=== PATIENT | male | born 1955 | race Caucasian/White ===

== ENCOUNTER 2025-04-02 13:38 | Emergency (ER) | payer MEDICARE, SELFPAY ==
[2025-04-02] VITALS (7 sets, daily range): BP systolic 113–139; BP diastolic 62–78; PULSE 60–76; RESP 16–20; TEMP 36.2–37; O2SAT 97–98; BMI 27.5
--- NOTE | ~2025-04-02 | CT_ITS ---
CLINICAL HISTORY: Abnormal plain head CT, MRI is not doable today CT head with and without contrast Comparison: None available Findings: No acute hemorrhage. No extra-axial fluid collection. Prominence of the ventricles and extra-axial spaces due to atrophy of the brain parenchyma. No hydrocephalus, mass-effect or herniation. Britton-white differentiation is maintained. There is patchy hypoattenuation of the periventricular and deep white matter, which is most likely the sequela of moderate chronic small vessel ischemic disease. No abnormal enhancement. No acute orbital pathology. No acute soft tissue abnormality. No fracture. The visualized paranasal sinuses are predominantly clear. The mastoid air cells are clear. Impression: No acute findings. An addendum can be provided of the prior study is submitted for review. This document has been electronically signed by: Aleah Villagomez MD on 04/02/2025 18:50:28
--- NOTE | ~2025-04-02 | CT_ITS ---
EXAMINATION: CT HEAD WITHOUT CONTRAST CLINICAL INFORMATION: Head trauma, loss of consciousness, anticoagulated COMPARISON: None available. TECHNIQUE: Contiguous axial imaging was performed from the skull base to vertex without intravenous administration of contrast. This CT examination was performed using dose optimization techniques as appropriate, variously including the following: *Automated exposure control *Adjustment of mA and/or kV according to patient size (this includes techniques or standardized protocols for targeted exams where dose is matched to indication/reason for exam; i.e. extremities or head) *Use of iterative reconstruction technique DLP: 726 mGY*cm FINDINGS: There is no acute ischemic change. Periventricular white matter hypodensities are present. There is no intracranial hemorrhage. There is mild effacement of sulci in the posterior right frontal lobe apex. No intracranial hemorrhage is apparent. Britton-white matter differentiation is visible. Basal cisterns and ventricles are within normal limits for age/cerebral volume. Orbits are symmetrical and unremarkable. Paranasal sinuses and mastoid air cells are pneumatized. There are no bony abnormalities. CT/CT Head for ICH IMPRESSION: There is asymmetry with sulcal effacement in the posterior right frontal-parietal vertex compared to the left. Occult lesion is not entirely ruled out. Consider MRI of the brain. Electronically signed by: Yovani Tavarez MD 04/02/2025 02:45 PM EDT
--- NOTE | ~2025-04-02 | XR_ITS ---
EXAMINATION: XR CHEST CLINICAL INFORMATION: syncope COMPARISON: None available. TECHNIQUE: Frontal view of the chest was obtained. FINDINGS: Pacemaker is positioned over the left upper chest with leads terminating in the right atrium and right ventricle. The heart size is within normal limits. Lungs are clear and well aerated. Prosthetic discs are present in the lower cervical spine. XR/XR chest 1V IMPRESSION: No acute disease Dual-lead Pacemaker. Electronically signed by: Yovani Tavarez MD 04/02/2025 03:36 PM EDT
--- NOTE | 2025-04-02 13:42 | ECG_ITS ---
Test Reason : weakness Blood Pressure : */* mmHG Vent. Rate : 72 BPM Atrial Rate : 72 BPM P-R Int : 190 ms QRS Dur : 86 ms QT Int : 402 ms P-R-T Axes : * 24 48 degrees QTcB Int : 440 ms Atrial-paced rhythm Abnormal ECG No previous ECGs available Referred By: Generic ED Physician Electronically Signed By: JULIANA PANDA
--- NOTE | 2025-04-02 13:59 | ED_ITS ---
HPI - General Adult General Chief complaint: Syncope Stated complaint: Weakness, passed out earlier Time Seen by Provider: 04/02/25 14:14 Source: patient and family ( spouse) Mode of arrival: ambulatory Limitations: no limitations History of Present Illness ED Provider: DR. Moffett HPI narrative: 69-year-old maleWith cardiac pacemaker on Eliquis, LDH came in with his family after he had a syncopal episode while he was at a restaurant patient felt lightheadedness tried to get out of the restaurant to get fresh air then he lost consciousness his witnessed him falling backward and becoming stiff without seizure activity the episode lasted for about 10-20 seconds as per the patient spontaneously regained his consciousness. patient admitted to drinking 1 beer and taking 15 mg THC gummie he brought from the dispensary. no headache, no blurry vision, no neck pain, no chest pain, no shortness of breath, no abdominal pain, no nausea, no vomiting. Related Data Allergies Allergy/AdvReac Type Severity Reaction Status Date / Time No Known Allergies Allergy Verified 04/02/25 14:00 Review of Systems 2 Review of Systems: All other systems are reviewed and are negative Constitutional: Reports as per HPI and Reports no additional constitutional complaints Eyes: Reports as per HPI and Reports no additional eye complaints Reports system reviewed and no additional complaints, except as documented Cardiovascular: Reports as per HPI and Reports no additional cardiovascular complaints Respiratory: Reports as per HPI and Reports no additional respiratory complaints Gastrointestinal: Reports as per HPI and Reports no additional gastrointestinal complaints Genitourinary: Reports no additional female genitourinary complaints Musculoskeletal: Reports no additional musculoskeletal complaints Skin/Breast: Reports system reviewed and no additional complaints, except as docu Psychiatric: Reports no additional psychiatric complaints Endocrine: Reports no additional endocrine complaints Hematologic/Lymphatic: Reports no additional hematologic/lymphatic complaints Allergic/Immunologic: Reports no additional allergic/immunologic complaints Reports system reviewed and no additional complaints, except as documented and Reports Abnormal speech present [facility] Social History Social History Smoked in Last 30 Days: No Use of substances other than those prescribed or required for medical reasons: Yes Substance Use Type: Marijuana Substance Use Frequency: Occasionally Last Used Substance: Hours (ago) Any prior treatment program specific to substance use: No Advance Directives: Yes Advance Directives Information Provided: No Advance Directives on File: No Do you have a plan to hurt others: No Plan Physical Exam ED Vital Signs: Vital Signs - 24 hr 04/02/25 13:56 04/02/25 14:30 04/02/25 14:31 Temperature 97.1 F Pulse Rate 72 71 73 Respiratory Rate 16 Blood Pressure 113/70 139/78 129/70 Pulse Oximetry 98 Oxygen Delivery Method Room Air 04/02/25 14:31 04/02/25 15:14 04/02/25 17:31 Temperature Pulse Rate 66 60 Respiratory Rate 16 Blood Pressure 138/66 115/62 Pulse Oximetry 98 97 Oxygen Delivery Method Room Air Room Air 04/02/25 19:35 Temperature 98.6 F Pulse Rate 63 Respiratory Rate 20 Blood Pressure 123/67 Pulse Oximetry 97 Oxygen Delivery Method Room Air BMI result Body Mass Index 27.5 Vital signs have been reviewed and appear to be correct. Blood pressure elevated. Heart rate normal. Respiratory rate normal. Temperature normal. Oxygen saturation normal. Orthostatic vital signs was noted appeared to be normal. Appearance: Alert. Oriented X3. No acute distress. Head: Normal external exam. Normocephalic. Atraumatic. No Torres signs noted. No raccoon eyes noted Eyes: PERRLA. EOMI. Conjunctiva and sclera normal. Eyelids normal. ENT: TM's Normal. Pharynx normal. Uvula midline. Moist mucous membranes. No trismus noted. No drooling noted. No muffled voice noted. Neck: Normal inspection. Neck supple. FROM. No adenopathy. Thyroid Normal. No meningeal signs. No neck mass noted. CVS: Normal heart rate and rhythm. Heart sound normal. No murmurs noted. Pulses normal throughout. Respiratory: No respiratory distress. Painless inspiration. Breath sounds normal. No wheezes/rales/rhonchi noted. Chest nontender. No accessory muscle usage noted or decreased air movement noted. Abdomen: Soft and nontender. Bowel sounds normal in all 4 quadrants. No distention noted. No organomegaly noted. No visible injury noted. Back: No CVA tenderness. Full range of motion noted. Skin: Skin warm and dry. Normal skin color. Normal skin turgor. No rashes/lesions/lacerations noted. Extremities: No lower extremity edema. Extremities exhibit normal range of motion. Extremities nontender. Neuro: Mental status: Normal attention, orientation, memory, and affect. Cranial nerves: Pupils are equal, round and reactive to light, EOMI, visual sanchez are fall, face is symmetric, facial sensations are normal. Motor examination normal muscle tone, strength to 4 extremities. DTR are +2, planter's are flexor. Sensory exam; normal coordination, no ataxia, gait stable. Cerebellar exam: [id number] and kulw-[id number]-qiud is normal. Extrapyramidal system: No tremors, no rigidity with normal facial expressions. Pronator drift not present NIH Stroke Scale Time: 15:19 Level of Consciousness: Alert Level of Consciousness Questions: Answers both questions correctly Level of Consciousness Commands: Performs both tasks correctly Best Gaze: Normal Visual: No visual loss Facial Palsy: Normal Motor Arm (Right): No drift Motor Arm (Left): No drift Motor Leg (Right): No drift Motor Leg (Left): No drift Limb Ataxia: Absent Sensory: Normal Best Language: No aphasia Dysarthia: Normal Extinction and Inattention: No abnormality Score: 0 Course Course Course Narrative: This is an RME: Additional HPI, ROS, PE not included below will be deferred to primary provider. RME assessment and note performed by: Anna Naylor PA-C This is a [id number]-male, with a hx of cardiac pacemaker on eliquis and HLD, who presents to the ER with complaints of weakness with +head strike with LOC. Reports that he took a THC gummy 15mg, then suddenly felt weak in the knees, stood up to get air outside and fell backwards, striking his posterior head. Loss consciousness for 30 seconds. Plan: Labs, CT head Reevaluation(s) Reevaluation #1: 69-year-old male came in after had syncopal episode at a restaurant. 1. Pacemaker and anticoagulation for unclear etiology. Patient will be monitored for the next 24 hours observation. 2. Questionable abnormal head CT recommending MRI, patient with pacemaker which should be compatible with MRI. 3. Case discussed with Dr. Beckford and patient to be admitted for syncope requesting to get MRI from the ED MRI was ordered. Time: 15:30 Reevaluation #2: 69-year-old male require MRI for abnormal head CT MRI is not possible to get done at this time of the day because will need to contact the pacemaker rep to reprogram the pacemaker after the MRI which is not available today will consider CT with IV contrast. Medical Decision Making Medical Decision Making [facility] Narrative: Patient is status post pacemaker for syncope episode about 2 years ago with life of 11 years comes here for syncope episode etiology not very clear patient has had a good pulse no seizure activity noticed likely vasovagal Medtronic pacemaker was checked showed no event case discussed Dr. Matias agreed with the report of the Medtronic. Patient does not want to stay in the hospital for further management signed against medical advice patient advised to go to nearest hospital for further evaluation and management about the syncope episode Differential Diagnosis Differential Diagnoses: The differential diagnosis associated with the presentation includes ( Cardiac event, ACS, pneumonia, pneumothorax, pleural effusion, intracranial bleed, electrolyte derangement, severe anemia.) Admission/Observation Consideration of admission/observation: Escalation of care including admission/observation considered Consult Healthcare Provider Management of the patient was discussed with: Hospitalist ( Dr. Beckford) Lab Data [facility] Lab Attestation statement: I reviewed the patient's lab results. 04/02/25 14:17 04/02/25 14:17 Labs: Lab Results 04/02/25 Range/Units 14:17 WBC 6.7 (4.8-10.8) X10*3/uL RBC 4.54 L (4.60-5.80) X10*6/uL Hgb 14.4 (14.0-18.0) g/dl Hct 41.6 L (42.0-52.0) % MCV 91.6 (80.0-98.0) fL MCH 31.7 (27.0-33.0) pg MCHC 34.6 (31.0-36.0) g/dl RDW 13.2 (11.0-16.0) % Plt Count 142 L (160-400) X10*3/uL MPV 11.1 (9.4-12.4) fL Immature Gran % (Auto) 0.1 (0.0-0.4) % Neut % (Auto) 57.7 (45-73) % Lymph % (Auto) 30.6 (20-40) % [place] % (Auto) 10.2 (2-11) % Eos % (Auto) 1.0 (0-4) % Baso % (Auto) 0.4 (0-2) % Lymph # (Auto) 2.0 (1.2-4.9) X10*3/uL [place] # (Auto) 0.7 (0.1-1.2) X10*3/uL Eos # (Auto) 0.1 (0.0-0.4) X10*3/uL Baso # (Auto) 0.0 (0.0-0.2) X10*3/uL Abs Immat Gran (auto) 0.01 (0.00-0.03) X10*3/uL Absolute Neuts (auto) 3.8 (2.0-8.3) x10*3/uL Absolute Nucleated RBC 0.000 (0.0-0.012) X10*3/uL Nucleated RBC % (auto) 0.0 (0.0-0.2) /100WBC Sodium 136 (135-145) mmol/L Potassium 4.4 (3.3-5.1) mmol/L Chloride 105 (96-108) mmol/L Carbon Dioxide 21 L (22-29) mmol/L Anion Gap 14 (12-20) BUN 13 (9-16) mg/dL Creatinine 0.97 (0.5-1.4) mg/dL Estim Creat Clear Calc 81.1 Estimated GFR > 60 Random Glucose 209 H (60-115) mg/dL Calcium 8.8 (8.4-10.2) mg/dL Magnesium 2.0 (1.6-2.6) mg/dL Total Bilirubin 1.0 (0.0-1.0) mg/dL Direct Bilirubin 0.4 (0.0-0.5) mg/dL AST 31 (5-37) U/L ALT 21 (0-40) U/L Alkaline Phosphatase 38 L (39-117) U/L Troponin I High Sens < 2.7 (<3.5-35.0) ng/L Total Protein 6.6 (6.5-8.0) g/dL Albumin 3.9 (3.5-5.0) g/dL Independent Interpretation I performed an independent interpretation of an: EKG ( Atrial paced at [address] Scan ( head:There is asymmetry with sulcal effacement in the posterior right frontal-parietal vertex compared to the left. Occult lesion is not entirely ruled out. Consider MRI of the brain. ) Radiology Impression Discussion of test interpretation with radiology: I have reviewed the radiologist's reading. Discharge Plan Discharge Clinical Impression: Syncope Patient Disposition: Left Against Medical Advice Instructions: Syncope (ED) Additional Instructions: Cause of syncope is not very clear your pacemaker was checked which was working normally You need further evaluation but you have decided to go against medical advice please seek medical attention as soon as possible for further management Stand Alone Forms: Against Medical Advice Print Language: Vietnamese
[2025-04-02 14:23] LABS: MANUAL DIFF FLAG NO
[2025-04-02 14:25] LABS: Basophils Percent Auto 0.4 % (0-2); Eosinophils Absolute Auto 0.1 X10*3/uL (0.0-0.4); Hematocrit 41.6 % (42.0-52.0); Hemoglobin 14.4 g/dl (14.0-18.0); Imm Gran Abs Auto 0.01 X10*3/uL (0.00-0.03); Imm Gran Pct Auto 0.1 % (0.0-0.4); Lymphocytes Percent Auto 30.6 % (20-40); Mean Corpuscular HGB Conc 34.6 g/dl (31.0-36.0); Mean Corpuscular Hemoglobin 31.7 pg (27.0-33.0); Mean Corpuscular Volume 91.6 fL (80.0-98.0); Mean Platelet Volume 11.1 fL (9.4-12.4); Monocytes Absolute Auto 0.7 X10*3/uL (0.1-1.2); Monocytes Percent Auto 10.2 % (2-11); Neutrophils Absolute Auto 3.8 x10*3/uL (2.0-8.3); Neutrophils Percent Auto 57.7 % (45-73); Platelet Count 142 X10*3/uL (160-400); Red Blood Count 4.54 X10*6/uL (4.60-5.80); Red Cell Distribution Width 13.2 % (11.0-16.0); White Blood Count 6.7 X10*3/uL (4.8-10.8)
[2025-04-02 14:43] LABS: Alanine Aminotransferase 21 U/L (0-40); Albumin Level 3.9 g/dL (3.5-5.0); Alkaline Phosphatase 38 U/L (39-117); Anion Gap 14 (12-20); Aspartate Amino Transferase 31 U/L (5-37); Bilirubin Direct 0.4 mg/dL (0.0-0.5); Blood Urea Nitrogen 13 mg/dL (9-16); Calcium 8.8 mg/dL (8.4-10.2); Carbon Dioxide 21 mmol/L (22-29); Chloride 105 mmol/L (96-108); Creatinine Clr Calc Pharmacy 81.1; Estimated Glomerular Filt Rate > 60; Glucose Random 209 mg/dL (60-115); Potassium 4.4 mmol/L (3.3-5.1); Sodium 136 mmol/L (135-145); Total Protein 6.6 g/dL (6.5-8.0)
[2025-04-02 14:51] LABS: Troponin-I High Sensitivity < 2.7 ng/L (<3.5-35.0)
--- OUTSIDE RECORDS SUMMARY | 2025-04-02 17:46 | XMS_ITS ---
Author Name [facility] Organization Unknown Encounters Encounter Type Encounter Reason Primary Diagnosis Location Date Ambulatory Remote Device Sick sinus syndrome [facility] 01/27/2025 Ambulatory Office Visit Essential (prima ry) hypertension [facility] 11/10/2024 Ambulatory Office Visit Presence of card iac pacemaker [facility] 10/28/2024 Ambulatory Office Visit Essential (prima ry) hypertension [facility] 04/21/2024 Ambulatory Office Visit Paroxysmal atria l fibrillation [facility] 03/06/2024 Ambulatory Office Visit Encounter for ad just and mgmt oth prt cardiac pacemaker [facility] 11/08/2023 Ambulatory Office Visit Pain in unspecif ied elbow [facility] 11/02/2023 Ambulatory Encntr for gener al adult medical exam w/o abnormal findings [facility] 04/13/2023 Ambulatory Paroxysmal atria l fibrillation [facility] 02/27/2023 Ambulatory Encounter for immunization [facility] 08/24/2022 Ambulatory Sick sinus syndrome [facility] 08/09/2022 Care Team Organization Name Specialty Phone Email Start Date End Da darrian [place] [facility] 10/05/202303/27 [facility] 04/13/2023 0 04/13/2023 [facility] Panel 10/13/2022 [facility] 08/09/2022 08/24/2022
--- NOTE | 2025-04-02 19:54 | PM.EVENT ---
Event Note Date of Service: 04/02/25 Event Note: Went to evaluate patient. Patient does not want to be admitted. ED provider, Dr. Duggan is at bedside interrogating his pacemaker. Time Spent With Patient Time: Total time managing care of this patient today ____ minutes.
== END 2025-04-02 20:38 | disposition left against medical advice (07) ==
PROVIDERS: Physician Assistant Medical; Emergency Provider Emergency Medicine
DX: R55 Syncope and collapse (principal); R53.1 Weakness; R40.4 Transient alteration of awareness; F12.90 Cannabis use, unspecified, uncomplicated; R94.31 Abnormal electrocardiogram [ECG] [EKG]; Z79.01 Long term (current) use of anticoagulants; Z79.899 Other long term (current) drug therapy
CPT/HCPCS: 36415; 70450; 70460; 71045; 80048; 80076; 83735; 84484; 85025; 93005; 99285

== ENCOUNTER → 2025-04-02 13:42 | Outpatient (BNV) | payer MEDICARE, SELFPAY | PROVIDERS: Emergency Provider Emergency Medicine; Visit Provider Internal Medicine | DX: R94.31 Abnormal electrocardiogram [ECG] [EKG] (principal); Z95.0 Presence of cardiac pacemaker | CPT/HCPCS: 93010 ==

== ENCOUNTER → 2025-04-02 14:05 | Outpatient (BNV) | payer MEDICARE, SELFPAY | PROVIDERS: Emergency Provider Emergency Medicine; Visit Provider Radiology Diagnostic Radiology | DX: S09.90XA Unspecified injury of head, initial encounter (principal); R55 Syncope and collapse | CPT/HCPCS: 70450; 70460; 71045 ==